=== PATIENT | female | born 1990 | race Caucasian/White ===

== ENCOUNTER 2017-04-08 15:34 | Outpatient (CLI) | payer OTHER, SELFPAY ==
[2017-04-08] MEDS: methylPREDNISolone 1,000 MG, VIAL MATE ADAPTER 1 EACH in D5W 250 ML IV (16:38)
== END 2017-04-08 18:19 | disposition home or self-care (01) ==
LOC: M OPCLI4PR 15:34 → M PED 15:41 → M OPCLIPED 18:19
DX: G35 Multiple sclerosis (principal)
CPT/HCPCS: J2930

== ENCOUNTER 2017-04-09 14:53 | Outpatient (CLI) | payer OTHER ==
[2017-04-09] MEDS: methylPREDNISolone 1,000 MG, VIAL MATE ADAPTER 1 EACH in D5W 250 ML IV (15:15)
== END 2017-04-09 16:30 | disposition home or self-care (01) ==
LOC: M INFU 14:53
DX: G35 Multiple sclerosis (principal)
CPT/HCPCS: J2930

== ENCOUNTER 2017-04-10 14:09 | Outpatient (CLI) | payer OTHER ==
[2017-04-10] MEDS: methylPREDNISolone 1,000 MG, VIAL MATE ADAPTER 1 EACH in D5W 250 ML IV (14:21)
== END 2017-04-10 15:45 | disposition home or self-care (01) ==
LOC: M INFU 14:09
DX: G35 Multiple sclerosis (principal)
CPT/HCPCS: J2930

== ENCOUNTER 2017-04-11 09:59 | Outpatient (CLI) | payer OTHER ==
[2017-04-11] MEDS: methylPREDNISolone 1,000 MG, VIAL MATE ADAPTER 1 EACH in D5W 250 ML IV (10:22)
== END 2017-04-11 11:45 | disposition home or self-care (01) ==
LOC: M OPCLIPED 09:59 → M PED 10:04 → M OPCLIPED 11:45
DX: G35 Multiple sclerosis (principal)
CPT/HCPCS: 96365

== ENCOUNTER 2017-04-12 10:01 | Outpatient (CLI) | payer OTHER ==
[2017-04-12] MEDS: methylPREDNISolone 1,000 MG, VIAL MATE ADAPTER 1 EACH in D5W 250 ML IV (10:23)
== END 2017-04-12 11:40 | disposition home or self-care (01) ==
LOC: M OPCLIPED 10:01 → M PED 10:04 → M OPCLIPED 11:40
DX: G35 Multiple sclerosis (principal)
CPT/HCPCS: 96365

== ENCOUNTER 2017-05-28 07:49 | Outpatient (CLI) | payer OTHER ==
[2017-05-28] MEDS: methylPREDNISolone 1,000 MG, VIAL MATE ADAPTER 1 EACH in D5W 250 ML IV (08:09)
== END 2017-05-28 09:25 | disposition home or self-care (01) ==
LOC: M INFU 07:49
DX: G35 Multiple sclerosis (principal); Z79.899 Other long term (current) drug therapy
CPT/HCPCS: J2930

== ENCOUNTER 2017-05-29 08:33 | Outpatient (CLI) | payer OTHER ==
[2017-05-29] MEDS: methylPREDNISolone 1,000 MG, VIAL MATE ADAPTER 1 EACH in D5W 250 ML IV (08:41)
== END 2017-05-29 09:55 | disposition home or self-care (01) ==
LOC: M INFU 08:33
DX: G35 Multiple sclerosis (principal); Z79.899 Other long term (current) drug therapy
CPT/HCPCS: J2930

== ENCOUNTER 2017-05-30 08:58 | Outpatient (CLI) | payer OTHER ==
[2017-05-30] MEDS: methylPREDNISolone 1,000 MG, VIAL MATE ADAPTER 1 EACH in D5W 250 ML IV ×2 (09:50→10:05)
== END 2017-05-30 11:05 | disposition home or self-care (01) ==
LOC: M OPCLI4PR 08:58 → M PED 09:03 → M OPCLI4PR 11:05
DX: G35 Multiple sclerosis (principal); Z79.899 Other long term (current) drug therapy
CPT/HCPCS: J2930

== ENCOUNTER 2017-05-31 09:00 | Outpatient (CLI) | payer OTHER ==
[2017-05-31] MEDS: methylPREDNISolone 1,000 MG, VIAL MATE ADAPTER 1 EACH in D5W 250 ML IV (09:36)
== END 2017-05-31 10:36 | disposition home or self-care (01) ==
LOC: M OPCLI4PR 09:00 → M PED 09:23 → M OPCLI4PR 10:36
DX: G35 Multiple sclerosis (principal); Z79.899 Other long term (current) drug therapy
CPT/HCPCS: J2930

== ENCOUNTER 2017-06-01 06:52 | Outpatient (CLI) | payer OTHER ==
[2017-06-01] MEDS: methylPREDNISolone 1,000 MG, VIAL MATE ADAPTER 1 EACH in D5W 250 ML IV (07:11)
== END 2017-06-01 08:25 | disposition home or self-care (01) ==
LOC: M INFU 06:52
DX: G35 Multiple sclerosis (principal); Z79.899 Other long term (current) drug therapy
CPT/HCPCS: J2930